=== PATIENT | female | born 1940 | race Caucasian/White ===

== ENCOUNTER 2017-01-05 20:19 | Emergency (ER) | payer MEDICARE, OTHER ==
[~2017-01-05] VITALS: Ht 175.3 cm; Wt 97.0 kg
[~2017-01-05 20:19] MED LIST: ASPI-515 PO; CARV12.52 PO; CHOL500014 PO; COLE1TAB2 PO; HYDR-3138 PO; LEVO200T5 PO; LOSA1TAB17 PO; LUTE1CAP PO; METF500T4 PO; OMEP-110 PO; ROSU10TA PO; TIZA4TAB9 PO; TRAZ50TA18 PO; UBIQ100C PO
[2017-01-05] MEDS ORDERED: SODIUM CHLORIDE 0.9% 1,000 ML IV ONE (20:29)
[2017-01-05] MEDS ORDERED: CEFTRIAXONE PMX 1GM/50ML 50 ML IVPB ONE (20:30)
[2017-01-05] MEDS ORDERED: SODIUM CHLORIDE FLUSH 10ML SYR IVF ONE (20:30)
[2017-01-05] MEDS ORDERED: AZITHROMYCIN 500 MG in SODIUM CHLORIDE 0.9% 250 ML IV ONE (20:30)
[2017-01-05 21:32] LABS: ASPARTATE AMINO TRANSFERASE 9 U/L (15-37); BLOOD UREA NITROGEN 9 mg/dL (7-18)
[2017-01-05] MEDS ORDERED: ALBUTEROL SULFATE 2.5 MG/3 ML ONE (22:22)
[2017-01-05] MEDS ORDERED: BENZONATATE 100 MG CAPSULE PO ONE (22:30)
[2017-01-05] MEDS ORDERED: ALBUTEROL SULFATE 2.5 MG/3 ML NPPB ONE (22:30)
[2017-01-05 22:48] VITALS: BP 121/61
== END 2017-01-05 23:17 | disposition home or self-care (01) ==
LOC: ED 23:00
DX: J20.9 Acute bronchitis, unspecified (principal); R06.00 Dyspnea, unspecified; I10 Essential (primary) hypertension; E11.9 Type 2 diabetes mellitus without complications; E03.9 Hypothyroidism, unspecified
CPT/HCPCS: 36415; 71010; 80053; 83605; 84145; 85025; 87040; 93005; 94640; 96365; 99285; J0456; J7030; J7050

== ENCOUNTER → 2017-01-21 | Outpatient (CLI) | payer MEDICARE, OTHER | END | disposition home or self-care (01) | LOC: CFH 10:20 | PROVIDERS: ATTEND Internal Medicine Pulmonary Disease | DX: J98.4 Other disorders of lung (principal) | CPT/HCPCS: 71250 ==

== ENCOUNTER → 2017-11-25 | Outpatient (CLI) | payer MEDICARE, OTHER ==
[~2017-11-25] MED LIST changes: -CHOL500014 PO; +CHOL500045 PO; -HYDR-3138 PO; +HYDR-3237 PO; -LOSA1TAB17 PO; +LOSA1TAB22 PO; -UBIQ100C PO; +UBIQ100C3 PO
== END | disposition home or self-care (01) ==
LOC: CFH 12:04
PROVIDERS: ATTEND Nurse Practitioner
DX: R91.8 Other nonspecific abnormal finding of lung field (principal); I70.0 Atherosclerosis of aorta; K80.20 Calculus of gallbladder without cholecystitis without obstruction; N20.0 Calculus of kidney
CPT/HCPCS: 71250

== ENCOUNTER → 2021-02-13 | Outpatient (CLI) | payer MEDICARE, OTHER ==
[~2021-02-13] MED LIST changes: -ASPI-515 PO; +ASPI-963 PO; +METF500T17 PO; -METF500T4 PO; +REGADENOSON 0.4 MG/5 ML SYRINGE ONE; -ROSU10TA PO; +ROSU10TA2 PO; -TRAZ50TA18 PO; +TRAZ50TA66 PO; +UBIQ100C2 PO; -UBIQ100C3 PO
== END | disposition home or self-care (01) ==
LOC: CFH 11:58
PROVIDERS: ATTEND Internal Medicine Cardiovascular Disease
DX: I10 Essential (primary) hypertension (principal); R06.02 Shortness of breath
CPT/HCPCS: 78452; 93017; A9502; J2785